=== PATIENT | female | born 1975 | race Caucasian/White ===

== ENCOUNTER 2020-09-15 07:36 | Outpatient (CLI) | payer OTHER ==
[~2020-09-15 07:36] MED LIST: CODE1TAB37 PO; COLACE100 MG PO; NAPROXEN500 MG PO
== END 2020-09-15 07:43 | disposition home or self-care (01) ==
LOC: SONOGRAMA 07:36
PROVIDERS: ATTEND Pathology Anatomic Pathology & Clinical Pathology
DX: E04.2 Nontoxic multinodular goiter (principal)

== ENCOUNTER 2023-03-07 06:08 | Day surgery (SDC) | payer OTHER ==
[~2023-03-07] VITALS: Ht 152.4 cm; Wt 61.2 kg
[~2023-03-07 06:08] MED LIST changes: +FENOFIBRATE50 MG PO; +NABUMETONE500 MG PO; +NORFLEX100MG PO; +TIROSINT75 MCG PO; +[UNRECOGNIZED DRUG - OTHER]
[2023-03-07] MEDS ORDERED: NAPR500T14 PO (08:42)
[2023-03-07] MEDS ORDERED: MORGIDOX100 MG PO (08:42)
== END 2023-03-07 10:40 | disposition home or self-care (01) ==
LOC: CIR.AMB 06:08
PROVIDERS: ATTEND Obstetrics & Gynecology
DX: D25.0 Submucous leiomyoma of uterus (principal); N84.0 Polyp of corpus uteri; Z20.822 Contact with and (suspected) exposure to COVID-19; I10 Essential (primary) hypertension; N93.8 Other specified abnormal uterine and vaginal bleeding

== ENCOUNTER 2024-04-02 13:11 | Outpatient (CLI) | payer OTHER ==
[~2024-04-02 13:11] MED LIST changes: +MORGIDOX100 MG PO; +NAPR500T14 PO
== END 2024-04-02 13:16 | disposition home or self-care (01) ==
LOC: SONOGRAMA 13:11
PROVIDERS: ATTEND Pathology Anatomic Pathology & Clinical Pathology
DX: D34 Benign neoplasm of thyroid gland (principal); E07.89 Other specified disorders of thyroid; E04.1 Nontoxic single thyroid nodule